=== PATIENT | male | born 1980 | race Asian ===

== ENCOUNTER 2020-04-24 12:51 | Emergency (ER) | payer OTHER ==
[~2020-04-24] VITALS: Ht 175.3 cm; Wt 77.1 kg
[2020-04-24 13:18] VITALS: BP 112/62; Ht 175.3 cm; Wt 77.1 kg
== END 2020-04-24 15:45 | disposition home or self-care (01) ==
LOC: ED 12:51
DX: S93.602A Unspecified sprain of left foot, initial encounter (principal); E78.00 Pure hypercholesterolemia, unspecified; F17.210 Nicotine dependence, cigarettes, uncomplicated; Z71.6 Tobacco abuse counseling; X58.XXXA Exposure to other specified factors, initial encounter; Y93.89 Activity, other specified; Y92.89 Other specified places as the place of occurrence of the external cause; Y99.8 Other external cause status
CPT/HCPCS: 99406